=== PATIENT | male | born 1965 | race Caucasian/White ===

== ENCOUNTER 2019-06-12 22:31 | Emergency (ER) | payer SELFPAY ==
[~2019-06-12] VITALS: Ht 170.2 cm; Wt 90.7 kg
[2019-06-12 22:40] VITALS: Ht 170.2 cm; Wt 90.7 kg
[2019-06-13 01:04] VITALS: BP 174/103
== END 2019-06-13 01:04 | disposition other institution (70) ==
LOC: ED 22:31
DX: E11.65 Type 2 diabetes mellitus with hyperglycemia (principal); I10 Essential (primary) hypertension
CPT/HCPCS: 82962; J7030

== ENCOUNTER 2019-06-12 22:31 | Emergency (ER) | payer OTHER | END 2019-06-13 01:04 | disposition other institution (70) | LOC: ED 22:31 | DX: Z02.89 Encounter for other administrative examinations (principal) ==